=== PATIENT | male | born 1975 | race Two or more races ===

== ENCOUNTER 2019-01-09 13:33 | Emergency (ER) | payer SELFPAY ==
[~2019-01-09] VITALS: Ht 172.7 cm; Wt 74.8 kg
[2019-01-09 13:34] VITALS: BP 141/88
--- NOTE | 2019-01-09 13:34 | NUR ---
ED Nurse Note: PT FROM HOME BROUGHT IN BY AMBULANCE BY RA94 DUE TO LEFT SIDE CP WITH NAUSEA 45 MINS PRIOR ED ARRIVAL. 362MG ASA AND 0.8MG NTG SPRAY GIVEN BY EMS. PT ALSO AMDITS ON DRINKING ALCOHOL LAST NIGHT AND NOTED ALCOHOL SMELL.PT IS AAO X4, AMBULATORY WITH NON LABORED BREATHING.
--- NOTE | 2019-01-09 13:56 | Emergency Room Report ---
History of Present Illness General Chief Complaint: Chest Pain Source: Patient, EMS Present Illness HPI Patient presents with a chief complaint of chest pain. He was getting ready to go to work. It hit him suddenly and describes it as sharp and 9/10 without radiation left-sided chest. Also felt some tingling in his hands and feet because of the pain. Paramedics transported him and gave him aspirin and nitroglycerin without any change. The patient denies any risk factors for cardiac disease. He was drinking yesterday. He had some nausea this morning and also some lower abdominal pain and cramping. He denies any fevers, chills, cough, sore throat or headache. He also felt dizziness with the tingling in his hands and feet. Allergies: Coded Allergies: No Known Allergies (Unverified , 01/09/19) Patient History Past Medical History: see triage record Social History: Reports: alcohol use; Denies: smoking Social History Narrative the patient is a automotive painter Reviewed Nursing Documentation: PMH: Agreed; PSxH: Agreed Nursing Documentation-PMH Past Medical History: No History, Except For Hx Diabetes: Yes Review of Systems All Other Systems: negative except mentioned in HPI Physical Exam Vital Signs Date Time Temp Pulse Resp B/P (MAP) Pulse Ox O2 Delivery O2 Flow Rate FiO2 01/09/19 13:24 108 18 144/98 (113) 98 Room Air Sp02 EP Interpretation: reviewed, normal General Appearance: well appearing, no apparent distress, GCS 15, other - Alcohol on breath Head: normocephalic Eyes: bilateral eye PERRL, bilateral eye Scleral Injection ENT: moist mucus membranes Neck: supple Respiratory: lungs clear, normal breath sounds Cardiovascular #1: regular rate, rhythm Cardiovascular #2: 2+ radial (R) Gastrointestinal: normal inspection, normal bowel sounds, non tender, no mass, non-distended Musculoskeletal: back normal, gait/station normal, normal range of motion Neurologic: alert, oriented x3, grossly normal Psychiatric: anxious Skin: normal inspection, warm/dry Medical Decision Making Diagnostic Impression: Primary Impression: Chest pain Qualified Codes: R07.9 - Chest pain, unspecified Additional Impressions: Gastritis Qualified Codes: K29.20 - Alcoholic gastritis without bleeding Alcohol intoxication Qualified Codes: F10.929 - Alcohol use, unspecified with intoxication, unspecified ER Course Patient presents with chest pain after having nausea this morning and drinking yesterday. Differential includes acute microinfarction, gastritis, esophageal spasm, esophagitis, chest wall pain, costochondritis, pneumothorax amongst others. Evaluation will be with EKG, chest x-ray and labs. The patient will be treated with IV hydration and Pepcid. Of note the patient did not respond to aspirin and nitroglycerin which makes cardiac etiology less likely however we need to exclude heart. Cause. EKG with normal sinus rhythm rate 89 and normal EKG. chest x-ray clear. Labs remarkable for elevated blood alcohol and glucose 345. Improved with hydration and tx. Discussed findings and the need for follow-up with his doctor and also Alcoholics Anonymous. He was advised that he have labs repeated. Patient reports that when he stops drinking that he gets the shakes and has trouble sleeping. Advised the patient to return if he has difficulty with withdrawing from alcohol. Patient stable for outpatient observation and treatment. Laboratory Tests Test 01/09/19 13:45 01/09/19 14:15 White Blood Count 6.2 K/UL (4.8-10.8) Red Blood Count 3.62 M/UL (4.70-6.10) L Hemoglobin 10.3 G/DL (14.2-18.0) L Hematocrit 32.4 % (42.0-52.0) L Mean Corpuscular Volume 89 FL (80-99) Mean Corpuscular Hemoglobin 28.4 PG (27.0-31.0) Mean Corpuscular Hemoglobin Concent 31.8 G/DL (32.0-36.0) L Red Cell Distribution Width 13.7 % (11.6-14.8) Platelet Count 76 K/UL (150-450) L Mean Platelet Volume 9.4 FL (6.5-10.1) Neutrophils (%) (Auto) % (45.0-75.0) Lymphocytes (%) (Auto) % (20.0-45.0) Monocytes (%) (Auto) % (1.0-10.0) Eosinophils (%) (Auto) % (0.0-3.0) Basophils (%) (Auto) % (0.0-2.0) Differential Total Cells Counted 100 Neutrophils % (Manual) 68 % (45-75) Lymphocytes % (Manual) 23 % (20-45) Monocytes % (Manual) 8 % (1-10) Eosinophils % (Manual) 0 % (0-3) Basophils % (Manual) 1 % (0-2) Band Neutrophils 0 % (0-8) Platelet Estimate Decreased L Platelet Morphology Normal Hypochromasia 1+ Sodium Level 135 MMOL/L (136-145) L Potassium Level 3.7 MMOL/L (3.5-5.1) Chloride Level 98 MMOL/L (98-107) Carbon Dioxide Level 23 MMOL/L (21-32) Anion Gap 14 mmol/L (5-15) Blood Urea Nitrogen 10 mg/dL (7-18) Creatinine 0.9 MG/DL (0.55-1.30) Estimate Glomerular Filtration Rate > 60 mL/min (>60) Glucose Level 345 MG/DL (74-106) H Calcium Level 8.9 MG/DL (8.5-10.1) Total Bilirubin 1.2 MG/DL (0.2-1.0) H Direct Bilirubin 0.6 MG/DL (0.0-0.3) H Aspartate Amino Transferase (AST) 142 U/L (15-37) H Alanine Aminotransferase (ALT) 96 U/L (12-78) H Alkaline Phosphatase 535 U/L (46-116) H Total Creatine Kinase 159 U/L (26-308) Creatine Kinase MB 1.5 NG/ML (0.0-3.6) Creatine Kinase MB Relative Index 0.9 Troponin I 0.000 ng/mL (0.000-0.056) Pro-B-Type Natriuretic Peptide 43 pg/mL (0-125) Total Protein 8.2 G/DL (6.4-8.2) Albumin 2.8 G/DL (3.4-5.0) L Globulin 5.4 g/dL Albumin/Globulin Ratio 0.5 (1.0-2.7) L Serum Alcohol 195 mg/dL Urine Opiates Screen Negative (NEGATIVE) Urine Barbiturates Screen Negative (NEGATIVE) Phencyclidine (PCP) Screen Negative (NEGATIVE) Urine Amphetamines Screen Negative (NEGATIVE) Urine Benzodiazepines Screen Negative (NEGATIVE) Urine Cocaine Screen Negative (NEGATIVE) Urine Marijuana (THC) Screen Negative (NEGATIVE) EKG Diagnostic Results Rate: normal Rhythm: NSR ST Segments: no acute changes Rhythm Strip Diag. Results EP Interpretation: yes Rhythm: NSR, no PVC's, no ectopy Chest X-Ray Diagnostic Results Chest X-Ray Diagnostic Results : Chest X-Ray Ordered: Yes # of Views/Limited/Complete: 1 View Indication: Chest Pain EP Interpretation: Yes Interpretation: no consolidation, no effusion, no pneumothorax Impression: No acute disease Electronically Signed by: Electronically signed by Tato Goetz MD Last Vital Signs Date Time Temp Pulse Resp B/P (MAP) Pulse Ox O2 Delivery O2 Flow Rate FiO2 01/09/19 18:06 98.3 73 16 153/80 98 Room Air Status: improved Disposition: HOME, SELF-CARE Condition: Improved Scripts Acetaminophen (Tylenol) 325 Mg Tablet 650 MG ORAL Q6H PRN for Prn Pain/Headache/Temp > 101, #20 TAB 0 Refills Prov: Tato Goetz MD 01/09/19 Famotidine (PEPCID AC) 20 Mg Tablet 20 MG PO DAILY, #20 TAB Prov: Tato Goetz MD 01/09/19 Tato Goetz MD Jan 09, 2019 13:56
[2019-01-09 14:10] LABS: HEMATOCRIT 32.4 % (42.0-52.0); HEMOGLOBIN 10.3 G/DL (14.2-18.0); MEAN CORPUSCULAR VOLUME 89 FL (80-99); PLATELET COUNT 76 K/UL (150-450); RED BLOOD COUNT 3.62 M/UL (4.70-6.10); RED CELL DISTRIBUTION WIDTH 13.7 % (11.6-14.8); WHITE BLOOD COUNT 6.2 K/UL (4.8-10.8)
--- NOTE | 2019-01-09 14:16 | Diagnostic Imaging Report ---
Indication: Chest pain Comparison: None A single view chest radiograph was obtained. Findings: Cardiomediastinal appearance is within normal limits for age. The lungs are clear. Pulmonary vascularity is appropriate. The diaphragmatic contour is smooth and costophrenic angles are sharp. No pleural effusions are identified. The bones are unremarkable. Impression: No acute findings
[2019-01-09 14:20] LABS: ANION GAP 14 mmol/L (5-15); BLOOD UREA NITROGEN 10 mg/dL (7-18); CALCIUM 8.9 MG/DL (8.5-10.1); CARBON DIOXIDE 23 MMOL/L (21-32); CHLORIDE 98 MMOL/L (98-107); CREATININE 0.9 MG/DL (0.55-1.30); POTASSIUM 3.7 MMOL/L (3.5-5.1); SODIUM 135 MMOL/L (136-145)
--- NOTE | 2019-01-09 14:27 | NUR ---
ED Nurse Note: BLOOD AND URINE COLLECTED AND SENT.
[2019-01-09 14:51] LABS: ALANINE AMINOTRANSFERASE 96 U/L (12-78); ALBUMIN 2.8 G/DL (3.4-5.0); ALBUMIN/GLOBULIN RATIO 0.5 (1.0-2.7); ALKALINE PHOSPHATASE 535 U/L (46-116); ASPARTATE AMINO TRANSFERASE 142 U/L (15-37); BILIRUBIN,TOTAL 1.2 MG/DL (0.2-1.0); CKMB 1.5 NG/ML (0.0-3.6); CREATINE KINASE 159 U/L (26-308)
[2019-01-09 14:53] LABS: BILIRUBIN,DIRECT 0.6 MG/DL (0.0-0.3)
--- NOTE | 2019-01-09 15:01 | NUR ---
ED Nurse Note: PT NOTED WITH NOSE BLEEDING. DR FULLER NOTIFIED.
[2019-01-09 15:30] VITALS: BP 150/76
[2019-01-09] MEDS ORDERED: TYLENOL325 MG ORAL (18:00)
[2019-01-09] MEDS ORDERED: PEPCID AC20 M2 PO (18:00)
[2019-01-09 18:06] VITALS: BP 153/80
--- NOTE | 2019-01-09 18:06 | NUR ---
ER DISCHARGE NOTE: Patient is cleared to be discharged per ERMD, pt is aox4, on room air, with stable vital signs. pt was given dc and prescription instructions, pt was able to verbalize understanding, pt id band and iv site removed without complications. pt is able to ambulate with steady gait. pt took all belongings.
--- NOTE | 2019-01-17 14:04 | Cardiology Report ---
APPROVED REPORT EKG Measurement Heart [id number] Normal sinus rhythm Normal ECG
== END 2019-01-09 18:06 | disposition home or self-care (01) ==
LOC: EDBD 13:33 → EMR 14:09
DX: R07.9 Chest pain, unspecified (principal); K29.20 Alcoholic gastritis without bleeding; F10.929 Alcohol use, unspecified with intoxication, unspecified; E11.9 Type 2 diabetes mellitus without complications; R11.0 Nausea
CPT/HCPCS: 36415; 71045; 80053; 80307; 82248; 82550; 82553; 83880; 84484; 85007; 85025; 93005; 96361; 96374; 99284; G0480; S0028; 80329